=== PATIENT | male | born 2000 | race Caucasian/White ===

== ENCOUNTER 2018-04-26 01:30 | Emergency (ER) | payer OTHER ==
[~2018-04-26] VITALS: Ht 180.3 cm; Wt 84.1 kg
[~2018-04-26 01:30] MED LIST: NOCURR
[2018-04-26 01:36] VITALS: BP 129/84
== END 2018-04-26 02:26 | disposition left against medical advice (07) ==
LOC: EMS 01:31
DX: S61.211A Laceration without foreign body of left index finger without damage to nail, initial encounter (principal); W45.8XXA Other foreign body or object entering through skin, initial encounter; Y93.89 Activity, other specified; Y92.89 Other specified places as the place of occurrence of the external cause; Y99.8 Other external cause status; Z53.21 Procedure and treatment not carried out due to patient leaving prior to being seen by health care provider